=== PATIENT | female | born 1990 | race African-American/Black ===

== ENCOUNTER 2019-01-17 13:05 | Emergency (ER) | payer OTHER ==
[~2019-01-17] VITALS: Ht 152.4 cm; Wt 63.5 kg
[2019-01-17 13:23] VITALS: TEMP 98.6
[2019-01-17 14:50] LABS: PLATELET COUNT 300 K/uL (152-353)
[2019-01-17 15:13] LABS: POTASSIUM 3.9 mmol/L (3.6-5.2)
[2019-01-17 16:31] VITALS: BP 118/66
== END 2019-01-17 16:30 | disposition home or self-care (01) ==
LOC: ED 13:05
PROVIDERS: Family Medicine
DX: R06.4 Hyperventilation (principal); R10.30 Lower abdominal pain, unspecified
CPT/HCPCS: 36415; 80053; 81000; 85027; 99283